=== PATIENT | male | born 1945 | race Caucasian/White ===

== ENCOUNTER 2017-07-14 03:01 | Emergency (ER) | payer OTHER, MEDICARE, BC ==
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
--- NOTE | 2017-07-14 04:57 | RADIOLOGY REPORT (SQ) ---
EXAM DESCRIPTION: FEMUR RIGHT CLINICAL HISTORY: trauma COMPARISON: None. FINDINGS: 2 views of the right femur. No acute fracture or dislocation. Osteopenia. Atherosclerotic vascular calcification. Degenerative change of the right hip. IMPRESSION: No acute fracture or dislocation.
--- NOTE | 2017-07-14 04:58 | RADIOLOGY REPORT (SQ) ---
EXAM DESCRIPTION: TIBIA FIBULA RIGHT CLINICAL HISTORY: trauma COMPARISON: None. FINDINGS: 2 views of the right tibia and fibula. No acute fracture or dislocation. Normal osseous mineralization. Atherosclerotic vascular calcification. IMPRESSION: No acute fracture or dislocation.
--- NOTE | 2017-07-14 04:59 | RADIOLOGY REPORT (SQ) ---
EXAM DESCRIPTION: KNEE RIGHT 2 VIEWS CLINICAL HISTORY: trauma COMPARISON: None. FINDINGS: 2 views of the right knee. No acute fracture or dislocation. Normal osseous mineralization. Atherosclerotic vascular calcification. No joint effusion. IMPRESSION: No acute fracture or dislocation.
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
--- NOTE | 2017-07-14 05:01 | RADIOLOGY REPORT (SQ) ---
EXAM DESCRIPTION: FOOT RIGHT COMPLETE CLINICAL HISTORY: trauma COMPARISON: None. FINDINGS: 3 views of the right foot. Atherosclerotic vascular calcification. Osteopenia. No acute fracture or dislocation. Plantar calcaneal spur. Dorsal soft tissue edema. IMPRESSION: No acute fracture or dislocation.
[2017-07-14] MEDS ORDERED: MORPHINE SULFATE 10 MG/ML INJ IV ONE (05:17)
--- NOTE | 2017-07-14 07:04 | RADIOLOGY REPORT (SQ) ---
EXAM DESCRIPTION: CT RIGHT FOOT WITHOUT CONTRAST CLINICAL HISTORY: right foot-injury COMPARISON: None Available. TECHNIQUE: CT of the right foot without IV contrast. Evaluation of the vasculature is suboptimal due to lack of IV contrast. DLP: 163.68 mGy-cm FINDINGS: Right foot: Osteopenia. Degenerative spurring of the ankles, intertarsal joints, tarsometatarsal joints, and interphalangeal joints. No acute fracture. Dorsal soft tissue edema. Atherosclerotic vascular calcification IMPRESSION: 1. No acute fracture or dislocation. This exam was performed according to our departmental dose-optimization program, which includes automated exposure control, adjustment of the mA and/or kV according to patient size and/or use of iterative reconstruction technique.
--- NOTE | 2017-07-14 07:08 | RADIOLOGY REPORT (SQ) ---
EXAM DESCRIPTION: CT THORACIC SPINE WITHOUT CLINICAL HISTORY: trauma/pain COMPARISON: None available TECHNIQUE: Axial CT of the thoracic spine obtained without contrast. FINDINGS: Alignment of the thoracic spine is maintained without evidence of subluxation. No fracture identified. Vertebral body height preserved. Paravertebral soft tissues are unremarkable. Multilevel bridging anterior osteophytes suggesting DISH. No cortical step-offs or subluxation. No definite intervertebral disc height narrowing. Neural foramen and spinal canal are widely patent. Scar calcification of the visualized thoracic aorta. No definite acute lung disease identified. DLP: 3441.08 mGy-cm IMPRESSION: 1. No acute fracture or subluxation of the thoracic spine. This exam was performed according to our departmental dose-optimization program, which includes automated exposure control, adjustment of the mA and/or kV according to patient size and/or use of iterative reconstruction technique.
--- NOTE | 2017-07-14 07:25 | RADIOLOGY REPORT (SQ) ---
EXAM DESCRIPTION: CT CERVICAL SPINE WITHOUT CLINICAL HISTORY: trauma/injury COMPARISON: None available TECHNIQUE: Axial CT of the cervical spine obtained without contrast. FINDINGS: Alignment of the cervical spine is maintained without evidence of subluxation. The atlantoaxial, atlantodental, and occipitoatlantal intervals are preserved. No fracture identified. Vertebral body height preserved. Prevertebral soft tissues are unremarkable. Spurring of the atlantodental articulation. Mild loss of intervertebral disc height throughout the cervical spine with endplate spondylosis, uncovertebral spurring, and facet arthropathy. Mild multilevel osseous neural foraminal narrowing. No definite central canal narrowing. Visualized skull base is intact. No fracture of the visualized facial bones. Visualized mastoid air cells and paranasal sinuses are well aerated. Visualized thyroid is unremarkable. No cervical lymphadenopathy. No pneumothorax in the visualized lung apices. Atherosclerotic vascular calcification. DLP: 537.70 mGy-cm IMPRESSION: 1. No acute fracture or subluxation of the cervical spine. This exam was performed according to our departmental dose-optimization program, which includes automated exposure control, adjustment of the mA and/or kV according to patient size and/or use of iterative reconstruction technique.
[2017-07-14 07:49] VITALS: BP 134/73
--- NOTE | 2017-07-14 20:12 | EKG REPORT ---
SEVERITY:- OTHERWISE NORMAL ECG - SINUS RHYTHM LOW VOLTAGE IN FRONTAL LEADS : Confirmed by: Martha Romero 14-Jul-2017 20:11:45
== END 2017-07-14 07:55 | disposition home or self-care (01) ==
LOC: ER 03:01
DX: S90.31XA Contusion of right foot, initial encounter (principal); S80.11XA Contusion of right lower leg, initial encounter; M54.6 Pain in thoracic spine; S80.811A Abrasion, right lower leg, initial encounter; S80.812A Abrasion, left lower leg, initial encounter; S80.211A Abrasion, right knee, initial encounter; V03.10XA Pedestrian on foot injured in collision with car, pick-up truck or van in traffic accident, initial encounter; F17.200 Nicotine dependence, unspecified, uncomplicated; I10 Essential (primary) hypertension
CPT/HCPCS: 93005; 99284; 96372; 73552; 73630; 73560; 73030; 73590; 72125; 72128; 73700; 93010; J2270